=== PATIENT | female | born 1970 | race Caucasian/White ===

== ENCOUNTER → 2019-06-27 | Outpatient (CLI) | payer BC ==
[~2019-06-27] MED LIST: ALBU0.632 IH; ALBU8.5H2 IH; CITA20TA4 PO; FERR-57 PO; HYDR-3454 PO; HYDR-707 PO; ZLP10T PO; ZOLP5TAB6 PO
[2019-06-27 09:43] LABS: BASOPHILS # (AUTO) 0.1 10^3/uL (0.0-0.1); BASOPHILS % (AUTO) 1 % (0-10); EOSINOPHILS # (AUTO) 0.4 10^3/uL (0.0-0.3); EOSINOPHILS % (AUTO) 6 % (0-10); HEMATOCRIT 40 % (35-52); HEMOGLOBIN 13.7 G/DL (11.5-16.0); LYMPHOCYTES # (AUTO) 2.6 X 10^3 (1.0-4.0); LYMPHOCYTES % (AUTO) 38 % (12-44); MEAN CORPUSCULAR HEMOGLOBIN 30 PG (25-34); MEAN CORPUSCULAR HGB CONC 34 G/DL (32-36); MEAN CORPUSCULAR VOLUME 88 FL (80-99); MEAN PLATELET VOLUME 9.6 FL (7.4-10.4); MONOCYTES # (AUTO) 0.4 X 10^3 (0.0-1.0); MONOCYTES % (AUTO) 6 % (0-12); NEUTROPHILS # (AUTO) 3.4 X 10^3 (1.8-7.8); NEUTROPHILS % (AUTO) 50 % (42-75); PLATELET COUNT 254 10^3/uL (130-400); RED CELL DISTRIBUTION WIDTH 13.3 % (10.0-14.5); WHITE BLOOD COUNT 6.8 10^3/uL (4.3-11.0)
[2019-06-27 10:08] LABS: ALANINE AMINOTRANSFERASE 46 U/L (0-55); ALBUMIN 4.4 GM/DL (3.2-4.5); ALKALINE PHOSPHATASE 91 U/L (40-136); BILIRUBIN,TOTAL 0.5 MG/DL (0.1-1.0); BUN/CREATININE RATIO 12; CALCIUM 9.6 MG/DL (8.5-10.1); CARBON DIOXIDE 23 MMOL/L (21-32); CHLORIDE 107 MMOL/L (98-107); CHOLESTEROL 228 MG/DL (< 200); CREATININE SERUM 0.97 MG/DL (0.60-1.30); GFR ESTIMATED > 60; GLUCOSE 93 MG/DL (70-105); HDL CHOLESTEROL 42 MG/DL (40-60); POTASSIUM 4.1 MMOL/L (3.6-5.0); SODIUM 139 MMOL/L (135-145); TOTAL PROTEIN 7.5 GM/DL (6.4-8.2); TRIGLYCERIDES 167 MG/DL (<150); VLDL CHOLESTEROL 33 MG/DL (5-40)
[2019-06-27 10:29] LABS: FREE T4 (FREE THYROXINE) 0.79 NG/DL (0.70-1.48)
== END ==
LOC: LAB 09:17
PROVIDERS: ATTEND Family Medicine
DX: Z01.812 Encounter for preprocedural laboratory examination (principal); E03.9 Hypothyroidism, unspecified; E55.9 Vitamin D deficiency, unspecified; I10 Essential (primary) hypertension; R73.9 Hyperglycemia, unspecified; R53.83 Other fatigue
CPT/HCPCS: 36415; 80053; 80061; 82306; 82607; 83036; 84439; 84443; 84480; 85025

== ENCOUNTER 2020-09-07 21:44 | Emergency (ER) | payer BC ==
[~2020-09-07] VITALS: Ht 160 cm; Wt 99.7 kg
[2020-09-07] MEDS ORDERED: LISD50CA (21:56)
[2020-09-07] MEDS ORDERED: DULO30CA49 (21:57)
[2020-09-07] MEDS ORDERED: THYR30TA2 (21:57)
[2020-09-07] MEDS ORDERED: ONDANSETRON 4 MG (ZOFRAN) ORAL DISSOLVE TAB PO STA (22:49)
[2020-09-07] MEDS ORDERED: KETOROLAC 60 MG/2 ML VIAL IM ONE (23:00)
--- NOTE | 2020-09-07 23:15 | ED Headache ---
General Chief Complaint: Head/Cervical Problems Stated Complaint: MIGRAINE X 3 DAYS Nursing Triage Note: c/o right sided migraine x3 days. reports waking up with it. denies injury. states medications have been ineffective. Nursing Sepsis Screen: No Definite Risk Source: patient History of Present Illness Date Seen by Provider: Sep 07, 2020 Time Seen by Provider: 22:04 Initial Comments PT ARRIVES VIA POV FROM HOME-DROVE SELF HERE C/O MIGRAINE SINCE WEDNESDAY--WOKE UP AT 0200 ON WEDNESDAY WITH HEADACHE PAIN IS BEHIND RIGHT EYE, AND IN RIGHT EPISCOPAL AND RIGHT FOREHEAD / PERIORBITAL AREA. NO VISION CHANGES + NAUSEA, VOMITED X 2 NO FEVER NO NECK PAIN OR STIFFNESS NO PARESTHESIAS OR MOTOR DEFICITS NO FEVER OR RECENT ILLNESS NO SINUS/URI SYMPTOMS HAS "MIGRAINES" A COUPLE OF TIMES A MONTH--USUALLY BEHIND BOTH EYES STATES SHE HAS HAD ONE THIS BAD ONLY ONE TIME BEFORE THIS HEADACHE IS ONLY ON RIGHT SIDE. TOOK 2 FIORNAL AT NOON--NO RELIEF, STATES IT USUALLY HELPS IF SHE TAKES IT EARLY ENOUGH HAS BEEN ON MAINTENANCE MEDICATION FOR HEADACHES IN THE PAST, BUT NONE WORKED. HAS NOT HAD CT OR MRI FOR THIS PROBLEM PCP: DR. GABRIEL Allergies and Home Medications Allergies Coded Allergies: No Known Drug Allergies (Unverified , 08/15/13) Home Medications Ketorolac Tromethamine 10 Mg Tablet, 10 MG PO Q6H Prescribed by: LORA GARRIDO on 09/07/202327 Ondansetron 8 Mg Tab.rapdis, 8 MG PO Q6H Prescribed by: LORA GARRIDO on 09/07/202327 Patient Home Medication List Home Medication List Reviewed: Yes Review of Systems Review of Systems Constitutional: no symptoms reported Eyes: See HPI Ears, Nose, Mouth, Throat: no symptoms reported Respiratory: no symptoms reported Cardiovascular: no symptoms reported Gastrointestinal: see HPI, nausea, vomiting Genitourinary: no symptoms reported : No (HYSTERECTOMY) Musculoskeletal: no symptoms reported Skin: no symptoms reported Psychiatric/Neurological: See HPI, Headache; Denies Numbness, Denies Paresthesia, Denies Seizure, Denies Tingling, Denies Tremors, Denies Weakness Past Xovyfph-Fomgqy-Lxzkme Hx Past Med/Social Hx: Reviewed and Corrections made Patient Social History Alcohol Use: Denies Use Drug of Choice: cannibus Smoking Status: Never a Smoker 2nd Hand Smoke Exposure: No Recent Infectious Disease Expo: No Recent Hopitalizations: No Immunizations Up To Date Tetanus Booster (TDap): Unknown PED Vaccines UTD: Yes Seasonal Allergies Seasonal Allergies: No Past Medical History Surgeries: Yes (BILAT FOOT SX,SEBACEOUS CYST RLQ ABDOMEN WALL) Appendectomy, Hysterectomy, Orthopedic Respiratory: Yes Asthma, Pneumonia Cardiac: No Neurological: Yes Headaches /Migraines : No Reproductive Disorders: No 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 oz. 87.276755us; 38.00 BMI Method: General Appearance: WD/WN, no apparent distress, other (HOLDING HAND OVER RIGHT EYE) HEENT: PERRL/EOMI, normal ENT inspection, TMs normal, pharynx normal, photophobia Neck: non-tender, full range of motion, supple, normal inspection Cardiovascular: regular rate, rhythm, no murmur Respiratory: normal breath sounds, no respiratory distress Gastrointestinal: soft Back: normal inspection Extremities: normal inspection Psychiatric: alert, oriented x 3 Crainal Nerves: normal hearing, normal speech, PERRL Coordination/Gait: normal gait Motor/Sensory: no motor deficit, no sensory deficit Skin: normal color, warm/dry; No rash Progress/Results/Core Measures Results/Orders My Orders Orders - LORA GARRIDO DO Ct Head Wo-R/O Stroke (09/07/20 22:11) Ketorolac Injection (Toradol Injection) (09/07/20 23:00) Ondansetron Oral Dissolve Tab (Zofran (09/07/20 22:49) Medications Given in ED Current Medications Medications Dose Ordered Sig/Vin Route Start Time Stop Time Status Last Admin Dose Admin Ketorolac Tromethamine 60 mg ONCE ONCE IM 2/6/21 23:00 09/07/20 23:01 DC 09/07/20 22:57 60 MG Vital Signs/I&O 09/07/20 21:49 Temp 35.9 Pulse 87 Resp 16 B/P (MAP) 169/105 (126) Pulse Ox 96 O2 Delivery Room Air Blood Pressure Mean: 126 Progress Progress Note : Progress Note GIVEN TORADOL AND ZOFRAN--COMPLETE RESOLUTION OF SYMPTOMS--FEELS SIGNIFICANTLY IMPROVED. NO PHOTOPHOBIA. NO NAUSEA, HEADACHE COMPLETELY RESOLVED. Diagnostic Imaging Comments CT HEAD--NO ACUTE PROCESS, PER [facility] RADIOLOGIST VIA PHONE AT [phone] Reviewed: Reviewed by Me, Discussed w/Radiologist Departure Impression Primary Impression: Headache Disposition: HOME, SELF-CARE Condition: Improved Departure-Patient Inst. Referrals: JONI GABRIEL DO (PCP/Family) Primary Care Physician Patient Instructions: Migraines (DC), Headache, Adult (DC) Add. Discharge Instructions: HOME, REST LOTS OF CLEAR LIQUIDS YOU MAY CONTINUE TO TAKE FIORNAL PRESCRIBED, NEEDED FOR HEADACHE FOLLOW UP WITH DR. GABRIEL ON WEDNESDAY IF NO BETTER, RETURN TO ER IF WORSE All discharge instructions reviewed with patient and/or family. Voiced understanding. Scripts Ondansetron (Ondansetron Odt) 8 Mg Tab.rapdis 8 MG PO Q6H, #10 TAB Prov: LORA GARRIDO DO 09/07/20 Ketorolac Tromethamine (Ketorolac Tromethamine) 10 Mg Tablet 10 MG PO Q6H for Pain, #15 TAB Prov: LORA GARRIDO DO 09/07/20 LORA GARRIDO DO Sep 07, 2020 23:15
[2020-09-07] MEDS ORDERED: KETO10TA PO (23:28)
[2020-09-07] MEDS ORDERED: ONDA8TAB13 PO (23:28)
[2020-09-07 23:30] VITALS: BP 127/100
--- NOTE | 2020-09-08 08:10 | Diagnostic Imaging Report ---
PROCEDURE: CT head wo r/o stroke. TECHNIQUE: Multiple contiguous axial images were obtained through the brain without the use of intravenous contrast. Auto Exposure Controls were utilized during the CT exam to meet ALARA standards for radiation dose reduction. INDICATION: Migraine headache for 3 days. FINDINGS: Noncontrast CT scan of the head demonstrates no mass effect, midline shift, hemorrhage or extra-axial fluid collections. Vargsa-white matter differentiation is normal. Ventricles, cortical sulci and basilar cisterns appear normal. No fluid is seen in the paranasal sinuses or mastoid air cells. IMPRESSION: Normal CT scan of the head. Dictated by: Dictated on workstation # [id number]
== END 2020-09-07 23:30 | disposition home or self-care (01) ==
LOC: EDUNIT# 21:44 → ER 21:46
DX: R51.9 Headache, unspecified (principal); Z80.9 Family history of malignant neoplasm, unspecified
CPT/HCPCS: 70450